=== PATIENT | female | born 1950 | race Caucasian/White ===

== ENCOUNTER → 2016-09-29 | Outpatient (CLI) | payer BC ==
[2016-01-10 12:26] VITALS: BP 123/66
[~2016-09-29] MED LIST: CELE200C PO; FERR-26 PO; GABA-586 PO; HYDR-2666 PO; IBUP-1060 PO; LEVO175T5 PO; MULT-460 PO; OXYC-244 PO; SENN-37 PO; WARF-78 PO; WARF4TAB7 PO
--- NOTE | 2016-09-29 14:00 | KCIC ---
MR of the right ankle HISTORY: Right Achilles pain for 2 years. TECHNIQUE: Routine multiplanar sequences are obtained. FINDINGS: Moderate thickening of the distal Achilles tendon and insertion. Small partial tear of the deep attachment, involving 20 percent of fibers. No large tear or rupture. Mild retrocalcaneal bursal fluid. Mild edema within the pre-Achilles fat and around the tendon. Longitudinal split tear of the peroneus brevis tendon at the level of the lateral malleolus without fluid or edema. Anterior talofibular ligament, calcaneofibular ligament and posterior talofibular ligament demonstrate changes of mild scarring but no acute tear or laxity. Anterior inferior tibiofibular ligament is intact. Posterior tibial and flexor tendons are intact. Scarring of the deep fibers of the deltoid ligament. Anterior tibial and extensor tendons are intact. No acute plantar fasciitis. Subtalar joints are patent. Tarsal sinus intact. Talar dome is intact. No significant joint effusion. IMPRESSION: 1. Moderate insertional Achilles tendinosis with a small partial tear at the deep attachment. 2. Scarring of lateral and medial ankle ligaments. 3. Longitudinal split tear of the peroneus brevis tendon. Electronically signed by: Gaetano Montana MD (09/29/2016 1:56 PM)
== END | disposition home or self-care (01) ==
LOC: KCIC MRI 11:27
PROVIDERS: ATTEND Podiatrist
DX: M25.571 Pain in right ankle and joints of right foot (principal)
CPT/HCPCS: 73721

== ENCOUNTER → 2017-03-11 | Outpatient (CLI) | payer BC ==
[2016-01-10 12:26] VITALS: BP 123/66
[~2017-03-11] MED LIST changes: -HYDR-2666 PO; +HYDR-2758 PO; -OXYC-244 PO; +OXYC-327 PO
--- NOTE | 2017-03-22 15:50 | KCIC ---
Bilateral digital screening mammograms: Reason for examination: Routine screening. Comparison is made to previous studies dated 03/15/2013 and 02/13/2010. Interpretation was made with the benefit of CAD. The skin and nipples show no abnormalities. No abnormal axillary lymph nodes are seen. The breast parenchyma shows scattered fibroglandular density. (Breast density: Category B.) There are no dominant masses, suspicious calcifications or architectural distortions. Impression: No evidence of malignancy. Recommend routine screening. BI-RADS Category 1: Negative. "Our facility is accredited by the [employer] Mammography Program." This patient's information has been entered into a reminder system for the patient to be notified with the results of her examination and a target date for the next mammogram. Electronically signed by: Lillian Taylor MD (03/22/2017 3:47 PM) [id number]
== END | disposition home or self-care (01) ==
LOC: KCIC MAMMO 09:13
PROVIDERS: ATTEND Family Medicine
DX: Z12.31 Encounter for screening mammogram for malignant neoplasm of breast (principal)
CPT/HCPCS: G0202; 77067

== ENCOUNTER 2018-03-15 08:00 | Day surgery (SDC) | payer BC, OTHER ==
[~2018-03-15] VITALS: Ht 152.4 cm; Wt 101.2 kg
[~2018-03-15 08:00] MED LIST changes: +CLINDAMYCIN 900MG PREMIX 50 ML IV PRN; -FERR-26 PO; +FERR325T14 PO; +HYDROmorphone 2 MG/ML VIAL IV PRN; +IV RINGERS,LACTATED 1000ML 1,000 ML IV SCH; +LEVO150T5 PO; +LIDOCAINE 1% PF 2 ML VIAL. ID PRN; +MELO15TA23 PO; +MORPHINE SULFATE 2 MG/ML VIAL. IV PRN; +ONDANSETRON PF 4 MG/2 ML VIAL. IV PRN; +PROCHLORPERAZINE 10 MG/2 ML VIAL. IV PRN; +TIZA4TAB PO; +TRAM50TA PO; +WARF4TAB64 PO; -WARF4TAB7 PO; +fentaNYL PF VIAL 100 MCG/2 ML VIAL IV PRN
[2018-03-15] MEDS ORDERED: FAMOTIDINE 20 MG/2 ML VIAL ONE (08:43)
[2018-03-15] MEDS ORDERED: DEXAMETHASONE SOD PHOS 20 MG/5 ML VIAL. ONE (08:43)
[2018-03-15] MEDS ORDERED: LIDOCAINE 1% PF 5 ML VIAL. ONE (08:43)
[2018-03-15] MEDS ORDERED: PROPOFOL 20 ML IV ONE (08:43)
[2018-03-15] MEDS ORDERED: ONDANSETRON PF 4 MG/2 ML VIAL. ONE (08:43)
[2018-03-15] MEDS ORDERED: ROCURONIUM 50 MG/5 ML VIAL. ONE (08:44)
[2018-03-15] MEDS ORDERED: fentaNYL PF VIAL 100 MCG/2 ML VIAL ONE ×2 (08:44→11:45)
[2018-03-15] MEDS ORDERED: MIDAZOLAM HCL/PF 2 MG/2 ML VIAL. ONE (08:44)
[2018-03-15] MEDS ORDERED: GLYCOPYRROLATE 1 MG/5 ML VIAL. ONE (09:58)
[2018-03-15] MEDS ORDERED: NEOSTIGMINE METHYLSULFATE 5 MG/5 ML SYRINGE. ONE (09:58)
[2018-03-15] MEDS ORDERED: BUPIVACAINE 0.5% 50 ML VIAL. ONE (10:38)
[2018-03-15] MEDS ORDERED: DESFLURANE 31 TO 60 MINUTES IH ONE (10:49)
--- NOTE | 2018-03-15 11:03 | DISCH ---
DISCHARGE INSTRUCTIONS Condition on Discharge Condition on Discharge: Stable Activity After Discharge Activity Instructions for Disc: Walk in house, Other, see below (no weightbearing but may wiggle toes and right ankle gently) Bathing Instructions: Shower-keep dressing dry, No Tub Bath until see Lifting Instructions after Dis: No heavy lifting, No pulling or pushing, Do not lift >10 pounds Exercise Instruction after Dis: Exercise per therapy, Progress as tolerated Driving Instructions after Dis: Do not drive Weight Bearing Status after Di: No restrictions, Full weight bearing, As tolerated Diet after Discharge Diet after Discharge: Regular Diet Texture: Regular Swallowing Supervision: None needed Wound Incision Care Wound/Incision Care: Ice to area for comfort, Do not change dressing Contacting the DRBubba after DC Call your doctor for: Concerns you may have Follow-Up Follow up with: Delbert 1 week, expect incision check and transition into a walker boot Treatment/Equipment after DC Adaptive Equipment Issued: None, Crutches CHANCE VARGAS MD Mar 15, 2018 11:03
[2018-03-15] MEDS ORDERED: HYDR-3135 PO (11:07)
[2018-03-15] MEDS ORDERED: HYDROcodone/APAP 10/325 1 TAB TABLET PO ONE (11:15)
[2018-03-15 12:47] VITALS: BP 134/74
--- NOTE | 2018-03-15 20:18 | PDOC4 ---
Operative Note Operative Note Date of surgery: 03/15/2018 Preoperative diagnosis: Right heel pain and spur with partial thickness Achilles tear Postoperative diagnosis: Same Operative procedure: Debridement of right heel spur and Achilles tendon repair Surgeon: Delbert Assist: Collins Lund NP Anesthesia: Gen. Estimated blood loss: 2 mL Complications: None Operative indications: Judd is a 67-year-old female with right heel pain MRI showing a large heel spur and partial thickness Achilles tear. She is been very symptomatic and limited in her activities of daily living unresponsive to nonoperative treatment. We had discussed nonoperative and operative treatment options of the ongoing above issues. She wishes more definitive treatment due to the limitations that she is facing. I described to the possibility of removing the excess bone the could be irritating the Achilles and repairing the partial thickness tear that that is present. We talked about the recovery process the possibility of nerve or blood vessel damage infection difficulties with a long healing course medical or other anesthetic complications among others all her questions were answered she wishes to proceed with operative evaluation and treatment. Operative text: Patient was identified procedure verified patient placed in the supine position on the operating table. After adequate amounts of general anesthesia were administered she was placed in the prone position and all bony prominences were well-padded and the right lower extremity was prepped and draped in standard sterile fashion. After timeout was performed patient procedure identified and verified right lower extremity was exsanguinated tourniquet inflated to 300 mmHg midline incision was made over the posterior aspect of the right heel. This was centered over the prominence posteriorly. The Achilles tendon was split longitudinally at its midline. Large overhanging spur was excised with a sagittal saw and surrounding bony osteophytes removed with the rongeur. Likewise devitalized tendon in this area was trimmed back to stable tissue sharply with scalpel and rongeur. With x-ray revealing removal of the calcaneus spur superiorly and bone prepared to a good bleeding surface, a # 2 Max braid suture was woven to affect a repair at the Achilles insertion on the proximal calcaneus. A Inviragen self-tapping anchor was tapped and placed into the bone and resulted in excellent apposition of the Achilles insertion proximally on the calcaneus. Remainder of the tendon was repaired longitudinally with Max braid sutures in a buried fashion to avoid any irritation posteriorly with knots. Excellent repair was noted throughout her range of motion thorough irrigation carried out normal saline solution subcutaneous closure with buried Vicryl sutures skin closure with Monocryl suture sterile soft dressings were applied patient was returned recovery room in stable condition having tolerated procedure well toes were noted be warm pink following deflation of the tourniquet Collins Lund nurse practitioner was present for the procedure assisted with prepping draping retraction repair and skin closure CHANCE VARGAS MD Mar 15, 2018 20:18
--- NOTE | 2018-03-17 15:12 | RAD ---
EXAM: Right ankle, single view. HISTORY: Achilles tendon repair. COMPARISON: None. FINDINGS: A single lateral view of the right ankle is obtained. There is soft tissue gas at the Achilles tendon insertion due to intraoperative imaging during Achilles tendon surgery. There is a tiny plantar spur. There is enthesopathy at the Achilles tendon insertion. IMPRESSION: Lateral view of the right ankle for operative guidance during a reported Achilles tendon repair. Electronically signed by: Rachana Amor MD (03/17/2018 3:09 PM) [facility]
== END 2018-03-15 12:47 | disposition home or self-care (01) ==
LOC: SURG 08:00
PROVIDERS: ATTEND Orthopaedic Surgery
DX: S86.011A Strain of right Achilles tendon, initial encounter (principal); M25.774 Osteophyte, right foot; X58.XXXA Exposure to other specified factors, initial encounter; Y93.89 Activity, other specified; Y92.89 Other specified places as the place of occurrence of the external cause; Y99.8 Other external cause status; E78.00 Pure hypercholesterolemia, unspecified; I10 Essential (primary) hypertension; K21.9 Gastro-esophageal reflux disease without esophagitis; E66.9 Obesity, unspecified; M19.90 Unspecified osteoarthritis, unspecified site; E03.9 Hypothyroidism, unspecified; Z79.899 Other long term (current) drug therapy; Z98.890 Other specified postprocedural states; Z90.49 Acquired absence of other specified parts of digestive tract; Z98.51 Tubal ligation status; Z96.641 Presence of right artificial hip joint
CPT/HCPCS: 27650; 28119; 73600; A7015; C1713; J1100; J2250; J2405; J2704; J2710; J3010; J3490; J7030; A4461

== ENCOUNTER → 2018-05-30 | Outpatient (CLI) | payer BC, MEDICAID ==
[~2018-05-30] MED LIST changes: -CLINDAMYCIN 900MG PREMIX 50 ML IV PRN; -GABA-586 PO; +GABA300C18 PO; -HYDR-2758 PO; +HYDR-2761 PO; +HYDR-3135 PO; -HYDROmorphone 2 MG/ML VIAL IV PRN; -IV RINGERS,LACTATED 1000ML 1,000 ML IV SCH; -LIDOCAINE 1% PF 2 ML VIAL. ID PRN; -MORPHINE SULFATE 2 MG/ML VIAL. IV PRN; -ONDANSETRON PF 4 MG/2 ML VIAL. IV PRN; -OXYC-327 PO; +OXYC1TAB19 PO; -PROCHLORPERAZINE 10 MG/2 ML VIAL. IV PRN; -fentaNYL PF VIAL 100 MCG/2 ML VIAL IV PRN
--- NOTE | 2018-05-30 13:41 | KCIC ---
Bilateral digital screening mammograms: Reason for examination: Routine screening. Comparison is made to previous studies dated 03/11/2017 and 03/15/2013. Interpretation was made with the benefit of CAD. The skin and nipples show no abnormalities. No abnormal axillary lymph nodes are seen. The breast parenchyma shows scattered fibroglandular density. (Breast density: Category B.) There are no dominant masses, suspicious calcifications or architectural distortions. Impression: No evidence of malignancy. Recommend routine screening. BI-RADS Category 1: Negative. "Our facility is accredited by the [employer] Mammography Program." This patient's information has been entered into a reminder system for the patient to be notified with the results of her examination and a target date for the next mammogram. Electronically signed by: Lillian Taylor MD (05/30/2018 1:37 PM) [id number]
--- NOTE | 2018-05-30 15:49 | KCIC ---
Indication: Postmenopausal. Osteoporosis screening. TECHNIQUE: DEXA scan COMPARISON: None FINDINGS: The bone mineral density from L1-L4 measures 1.299 g/sq cm with T score of 2.3. The bone mineral density in the distal radius and ulna measures 0.560 g/sq cm with T score of -0.1. IMPRESSION: 1. Normal bone mineral density in the lumbar spine. Please note that degenerative changes may falsely elevate bone mineral density. 2. Normal bone mineral density in the distal forearm. Electronically signed by: Barrera Davidson DO (05/30/2018 3:45 PM) [id number]
== END | disposition home or self-care (01) ==
LOC: KCIC DEXA 11:16
PROVIDERS: ATTEND Family Medicine
DX: Z12.31 Encounter for screening mammogram for malignant neoplasm of breast (principal); Z13.820 Encounter for screening for osteoporosis; E07.89 Other specified disorders of thyroid; Z78.0 Asymptomatic menopausal state
CPT/HCPCS: 77067; 77080; 77081

== ENCOUNTER 2018-11-18 10:07 | Emergency (ER) | payer BC, MEDICAID, OTHER ==
[~2018-11-18] VITALS: Ht 152.4 cm; Wt 101.2 kg
[2018-11-18 10:37] VITALS: BP 179/83
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
[2018-11-18] MEDS ORDERED: CYCL10TA2 PO (11:40)
[2018-11-18] MEDS ORDERED: IBUP-1007 PO (11:40)
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
== END 2018-11-18 11:45 | disposition home or self-care (01) ==
LOC: ER 10:07
DX: S46.812A Strain of other muscles, fascia and tendons at shoulder and upper arm level, left arm, initial encounter (principal); S16.1XXA Strain of muscle, fascia and tendon at neck level, initial encounter; M25.521 Pain in right elbow; E03.9 Hypothyroidism, unspecified; Z88.0 Allergy status to penicillin; Z88.5 Allergy status to narcotic agent; V43.62XA Car passenger injured in collision with other type car in traffic accident, initial encounter; Y93.89 Activity, other specified; Y92.410 Unspecified street and highway as the place of occurrence of the external cause; Y99.8 Other external cause status
CPT/HCPCS: 73080; 99284